=== PATIENT | female | born 1985 | race Asian ===

== ENCOUNTER 2017-04-02 02:16 | Emergency (ER) | payer BC ==
[~2017-04-02] VITALS: Ht 165.1 cm; Wt 67.7 kg
[2017-04-02] MEDS ORDERED: FAMOTIDINE 20 MG/2 ML ONE (02:56)
[2017-04-02] MEDS ORDERED: ONDANSETRON 2MG/ML, 2ML ONE (02:56)
[2017-04-02] MEDS ORDERED: SODIUM CHLORIDE 0.9% 1,000ML IVBOLUS ONE (03:00)
[2017-04-02] MEDS ORDERED: SODIUM CHLORIDE FLUSH 10ML SYR IVF ONE (03:00)
[2017-04-02] MEDS ORDERED: ONDANSETRON 2MG/ML, 2ML IVPush ONE (03:00)
[2017-04-02] MEDS ORDERED: FAMOTIDINE 20 MG/2 ML IVP ONE (03:00)
[2017-04-02 03:02] LABS: HEMATOCRIT 35.3 % (34.6-47.8); HEMOGLOBIN 11.4 g/dL (11.7-16.4); WHITE BLOOD COUNT 10.8 x10^3/uL (3.4-10)
[2017-04-02 03:13] LABS: BLOOD UREA NITROGEN 15 mg/dL (7-18)
[2017-04-02 04:29] VITALS: BP 96/50
== END 2017-04-02 04:33 | disposition home or self-care (01) ==
LOC: ED 04:27
DX: O23.42 Unspecified infection of urinary tract in pregnancy, second trimester (principal); R11.2 Nausea with vomiting, unspecified
CPT/HCPCS: 36415; 80048; 81001; 82040; 85025; 87086; 96361; 96374; 96375; 99284; J2405; J7030; S0028